=== PATIENT | female | born 1965 | race African-American/Black ===

== ENCOUNTER 2022-02-15 12:01 | Outpatient (CLI) | payer BC, SELFPAY ==
[2022-02-15 12:45] LABS: Hematocrit 41.7 % (37.0-47.0); Mean Corpuscular HGB Conc 33.6 g/dl (32-36); Mean Corpuscular Hemoglobin 30.7 pg (26-34); Mean Corpuscular Volume 91.4 fl (80-100); Mean Platelet Volume 9.8 fl (7.4-10.4); Platelet Count Result 272 k/mm3 (150-375); Red Blood Count 4.56 M/mm3 (4.2-5.4)
[2022-02-15 13:12] LABS: Alanine Aminotransferase 12 U/L (6-35); Albumin Level 4.2 g/dL (3.5-5.1); Alkaline Phosphatase 111 U/L (38-126); Anion Gap 12 mmol/L (8-16); Aspartate Amino Transferase 22 U/L (14-36); Bilirubin,Total 0.9 mg/dL (0.2-1.3); Blood Urea Nitrogen 14 mg/dL (7-17); Calcium 9.3 mg/dL (8.4-10.2); Carbon Dioxide 24 mmol/L (22-30); Chloride 101 mmol/L (98-107); Cholesterol 224 mg/dL (0-200); Estimated Glomerular Filt Rate > 60; Glucose 188 mg/dL (65-110); HDL Direct 40 mg/dL; Potassium 3.6 mmol/L (3.4-5.0); Sodium 137 mmol/L (137-145); Triglycerides 130 mg/dL (<150)
[2022-02-15 13:12] LABS: Creatinine Urine 67.5 mg/dL
[2022-02-15 13:16] LABS: MALB Creatinine Ratio 20.3 mg/g (0-30); Microalbumin Urine Random 13.7 mg/L (0-16.7)
[2022-02-15 13:23] LABS: LDL Cholesterol Direct 127 mg/dL
[2022-02-15 14:24] LABS: Vitamin D 25 Hydroxy 41.6 ng/mL
[2022-02-15 14:38] LABS: Thyroid Stimulating Hormone Reflex 0.392 uIU/mL (0.465-4.68)
[2022-02-15 19:27] LABS: Free T4 Free Thyroxine Reflex 1.36 ng/dL (0.78-2.19)
[2022-02-15 20:06] LABS: Total Triiodothyronine (T3) 1.15 NG/ML (0.97-1.69)
[2022-02-19 15:53] LABS: FSH 27.1 mIU/mL (***); LH 10.2 mIU/mL (***)
[2022-02-22 21:52] LABS: Estradiol, Ultrasensitive 2 pg/mL
== END 2022-02-15 12:02 | disposition home or self-care (01) ==
PROVIDERS: PCP Family Medicine; Visit Provider Student in an Organized Health Care Education/Training Program
DX: E11.9 Type 2 diabetes mellitus without complications (principal); N95.1 Menopausal and female climacteric states
CPT/HCPCS: 36415; 80053; 80061; 82043; 82306; 82670; 83001; 83002; 84439; 84443; 84480; 85027

== ENCOUNTER 2022-03-16 10:26 | Outpatient (CLI) | payer BC, SELFPAY ==
--- NOTE | ~2022-03-16 | US_ITS ---
EXAMINATION: US pelvic complete w TV DATE: 03/16/2022 11:08 INDICATION: Vaginal bleeding Comparison:. No prior studies for comparison. TECHNIQUE: Multiple transabdominal and endovaginal sonographic images of the pelvis performed. FINDINGS: The uterus measures 11.1 x 5.6 x 6.3 cm. There are multiple uterine fibroids, largest measu ring 5.5 cm. The endometrial complex measures 6 mm. The ovaries are not visualized. There is no free fluid in the pelvis. There are no abnormal masses seen on either side. IMPRESSION: 1. Thickened endomtrial complex. The differential diagnosis includes endometrial hyperplasia, polyp a nd carcinoma. Biopsy is recommended. 2: Enlarged fibroid uterus, largest discrete fibroid measuring 5.5 cm maximum dimension. Reviewed, dictated and finalized at location A. [facility] PHYSICIAN IMPRESSION: 1. Thickened endomtrial complex. The differential diagnosis includes endometria l hyperplasia, polyp and carcinoma. Biopsy is recommended. 2: Enlarged fibroid uterus, largest discrete fibroid measuring 5.5 cm maximum d imension.
== END 2022-03-16 10:27 | disposition home or self-care (01) ==
PROVIDERS: PCP Family Medicine; Visit Provider Student in an Organized Health Care Education/Training Program
DX: N95.0 Postmenopausal bleeding (principal); D25.9 Leiomyoma of uterus, unspecified
CPT/HCPCS: 76830; 76856